=== PATIENT | female | born 1995 | race African-American/Black ===

== ENCOUNTER 2018-02-18 00:16 | Emergency (ER) | payer OTHER ==
[2018-02-18 00:22] VITALS: RESP 18; TEMP 99
[2018-02-18 00:36] LABS: Appearance,Urine Clear (Clear); Bilirubin,Urine Negative (Negative); Blood,Urine Negative (Negative); Color,Urine Yellow; Glucose,Urine (UA) Negative (Negative); Ketones,Urine Negative (Negative); Leukocyte Esterase,Urine Negative (Negative); Nitrite,Urine Negative (Negative); PH, Urine 5.5 (5.0-8.0); Protein,Urine Negative (Negative); Specific Gravity,Urine 1.023 (1.001-1.035); Urobilinogen,Urine <2.0 mg/dL (<2.0)
[2018-02-18] MEDS ORDERED: ONDANSETRON 4 MG/2 ML VIAL IVP STA (00:47)
[2018-02-18] MEDS ORDERED: SODIUM CHLORIDE 0.9% 500 ML IV STA (00:47)
--- NOTE | 2018-02-18 00:52 | ED ---
Abdominal Pain HPI - General Chief Complaint: Abdominal Pain Stated Complaint: Not feeling well Time Seen by Provider: 02/18/18 00:32 Source: patient Mode of arrival: ambulatory Limitations: no limitations - History of Present Illness Initial Comments: This patient is a 22-year-old woman who presents to be evaluated for generalized abdominal discomfort and nausea. The patient states that her symptoms started between a day in 2 days ago. She states she is feeling the symptoms throughout the abdomen, etc. generalized sensation. She states it feels upset. She states that she tried taking a laxative, but it didn't really change her she is feeling though she did not really have much of a bowel movement. She also reports having some nausea associated. Patient was also concerned about possibility of being . She states that she had sexual activity with someone on Thursday. Her last menstrual period was on February 07. The patient reports that prior to Thursday she had not been sexually active. Patient denies vaginal discharge. MD Complaint: abdominal pain Onset/Timin -: days(s) Location: diffuse Radiation: none Migration to: no migration Severity: mild Quality: cramping Consistency: constant Improves With: nothing Worsens With: nothing Associated Symptoms: nausea, constipation Treatments Prior to Arrival: other (Laxative) - Related Data Allergies Allergy/AdvReac Type Severity Reaction Status Date / Time No Known Allergies Allergy Verified 02/18/18 00:22 Review of Systems ROS Statement: Those systems with pertinent positive or pertinent negative responses have been documented in the HPI. ROS Other: All systems not noted in ROS Statement are negative. Constitutional: Denies: fever, chills Respiratory: Denies: cough, dyspnea Cardiovascular: Denies: chest pain, palpitations, edema Gastrointestinal: Reports: abdominal pain, nausea, vomiting, constipation. Denies: diarrhea, melena, hematochezia Genitourinary: Denies: dysuria, hematuria, discharge, abnormal menses Musculoskeletal: Denies: back pain Skin: Denies: rash Neurological: Denies: headache, weakness, numbness Past Medical History Past Medical History: No Reported History History of Any Multi-Drug Resistant Organisms: None Reported Past Surgical History: Orthopedic Surgery Past Psychological History: No Psychological Hx Reported Smoking Status: Never smoker Past Alcohol Use History: Occasional Past Drug Use History: None Reported General Exam Limitations: no limitations General appearance: alert, in no apparent distress Head exam: Present: normocephalic Eye exam: Present: normal appearance. Absent: scleral icterus, conjunctival injection ENT exam: Present: normal oropharynx Respiratory exam: Present: normal lung sounds bilaterally. Absent: respiratory distress, wheezes, rales, rhonchi, stridor Cardiovascular Exam: Present: regular rate, normal rhythm, normal heart sounds. Absent: systolic murmur, diastolic murmur, rubs, gallop GI/Abdominal exam: Present: soft, normal bowel sounds. Absent: distended, tenderness, guarding, rebound, rigid, mass, pulsatile mass, hernia Extremities exam: Present: normal inspection, normal capillary refill. Absent: pedal edema Back exam: Present: normal inspection. Absent: CVA tenderness (R), CVA tenderness (L) Neurological exam: Present: alert Skin exam: Present: warm, dry, intact, normal color. Absent: rash Course Vital Signs 02/18/18 00:19 Temperature 99.0 F Pulse Rate 75 Respiratory 18 Rate Blood Pressure 137/98 O2 Sat by Pulse 100 Oximetry Medical Decision Making - Lab Data Result diagrams: 02/18/18 00:59 02/18/18 00:59 Lab Results 02/18/18 02/18/18 02/18/18 Range/Units 00:22 00:22 00:59 WBC (4.0-11.0) k/uL RBC (3.80-5.40) m/uL Hgb (11.4-16.0) gm/dL Hct (34.0-46.0) % MCV (80.0-100.0) fL MCH (25.0-35.0) pg MCHC (31.0-37.0) g/dL RDW (11.5-15.5) % Plt Count (150-450) k/uL Neutrophils % % Lymphocytes % % Monocytes % % Eosinophils % % Basophils % % Neutrophils # (1.3-7.7) k/uL Lymphocytes # (1.0-4.8) k/uL Monocytes # (0-1.0) k/uL Eosinophils # (0-0.7) k/uL Basophils # (0-0.2) k/uL Sodium 142 (137-145) mmol/L Potassium 4.4 (3.5-5.1) mmol/L Chloride 111 H (98-107) mmol/L Carbon Dioxide 24 (22-30) mmol/L Anion Gap 7 mmol/L BUN 13 (7-17) mg/dL Creatinine 0.98 (0.52-1.04) mg/dL Est GFR (CKD-EPI)AfAm >90 (>60 ml/min/1.73 sqM) Est GFR (CKD-EPI)NonAf 83 (>60 ml/min/1.73 sqM) Glucose 99 (74-99) mg/dL Calcium 9.4 (8.4-10.2) mg/dL Total Bilirubin 0.3 (0.2-1.3) mg/dL AST 25 (14-36) U/L ALT 25 (9-52) U/L Alkaline Phosphatase 101 (38-126) U/L Total Protein 7.2 (6.3-8.2) g/dL Albumin 4.1 (3.5-5.0) g/dL Amylase 76 (30-110) U/L Lipase 272 (23-300) U/L Urine Color Yellow Urine Appearance Clear (Clear) Urine pH 5.5 (5.0-8.0) Ur Specific [place] 1.023 (1.001-1.035) Urine Protein Negative (Negative) Urine Glucose (UA) Negative (Negative) Urine Ketones Negative (Negative) Urine Blood Negative (Negative) Urine Nitrite Negative (Negative) Urine Bilirubin Negative (Negative) Urine Urobilinogen <2.0 (<2.0) mg/dL Ur Leukocyte Esterase Negative (Negative) Urine HCG, Qual Not Detected (Not Detectd) 02/18/18 Range/Units 00:59 WBC 6.1 (4.0-11.0) k/uL RBC 4.68 (3.80-5.40) m/uL Hgb 13.4 (11.4-16.0) gm/dL Hct 43.0 (34.0-46.0) % MCV 91.9 (80.0-100.0) fL MCH 28.7 (25.0-35.0) pg MCHC 31.2 (31.0-37.0) g/dL RDW 13.2 (11.5-15.5) % Plt Count 226 (150-450) k/uL Neutrophils % 60 % Lymphocytes % 29 % Monocytes % 6 % Eosinophils % 2 % Basophils % 1 % Neutrophils # 3.6 (1.3-7.7) k/uL Lymphocytes # 1.8 (1.0-4.8) k/uL Monocytes # 0.4 (0-1.0) k/uL Eosinophils # 0.1 (0-0.7) k/uL Basophils # 0.0 (0-0.2) k/uL Sodium (137-145) mmol/L Potassium (3.5-5.1) mmol/L Chloride (98-107) mmol/L Carbon Dioxide (22-30) mmol/L Anion Gap mmol/L BUN (7-17) mg/dL Creatinine (0.52-1.04) mg/dL Est GFR (CKD-EPI)AfAm (>60 ml/min/1.73 sqM) Est GFR (CKD-EPI)NonAf (>60 ml/min/1.73 sqM) Glucose (74-99) mg/dL Calcium (8.4-10.2) mg/dL Total Bilirubin (0.2-1.3) mg/dL AST (14-36) U/L ALT (9-52) U/L Alkaline Phosphatase (38-126) U/L Total Protein (6.3-8.2) g/dL Albumin (3.5-5.0) g/dL Amylase (30-110) U/L Lipase (23-300) U/L Urine Color Urine Appearance (Clear) Urine pH (5.0-8.0) Ur Specific [place] (1.001-1.035) Urine Protein (Negative) Urine Glucose (UA) (Negative) Urine Ketones (Negative) Urine Blood (Negative) Urine Nitrite (Negative) Urine Bilirubin (Negative) Urine Urobilinogen (<2.0) mg/dL Ur Leukocyte Esterase (Negative) Urine HCG, Qual (Not Detectd) Disposition Clinical Impression: Nausea Disposition: HOME SELF-CARE Condition: Good Instructions: Acute Nausea and Vomiting (ED) Is patient prescribed a controlled substance at d/c from ED?: No Referrals: Apoorva Rasmussen MD [STAFF PHYSICIAN] - 1-2 days
[2018-02-18 01:11] LABS: Basophils % (A) 1 %; Eosinophils # (A) 0.1 k/uL (0-0.7); Eosinophils % (A) 2 %; HGB 13.4 gm/dL (11.4-16.0); Lymphocytes # (A) 1.8 k/uL (1.0-4.8); Lymphocytes % (A) 29 %; MCH 28.7 pg (25.0-35.0); MCHC 31.2 g/dL (31.0-37.0); MCV 91.9 fL (80.0-100.0); Mean Platelet Volume 7.5; Monocytes # (A) 0.4 k/uL (0-1.0); Monocytes % (A) 6 %; Neutrophils # (A) 3.6 k/uL (1.3-7.7); Neutrophils % (A) 60 %; Platelet Count 226 k/uL (150-450); RBC 4.68 m/uL (3.80-5.40); RDW 13.2 % (11.5-15.5); WBC 6.1 k/uL (4.0-11.0)
[2018-02-18 01:20] LABS: ALT 25 U/L (9-52); AST 25 U/L (14-36); Albumin 4.1 g/dL (3.5-5.0); Alkaline Phosphatase 101 U/L (38-126); Amylase 76 U/L (30-110); Anion Gap 7 mmol/L; Blood Urea Nitrogen 13 mg/dL (7-17); Calcium 9.4 mg/dL (8.4-10.2); Carbon Dioxide 24 mmol/L (22-30); Chloride 111 mmol/L (98-107); Glucose 99 mg/dL (74-99); Lipase 272 U/L (23-300); Potassium 4.4 mmol/L (3.5-5.1); Sodium 142 mmol/L (137-145); Total Bilirubin 0.3 mg/dL (0.2-1.3); Total Protein 7.2 g/dL (6.3-8.2)
[2018-02-18 02:11] VITALS: BP 128/73; PULSE 69
== END 2018-02-18 02:11 | disposition home or self-care (01) ==
LOC: EC 00:16
DX: R11.0 Nausea (principal); R10.84 Generalized abdominal pain; Z32.02 Encounter for pregnancy test, result negative
CPT/HCPCS: 36415; 80053; 81003; 81025; 82150; 83690; 85025; 96374; 99284

== ENCOUNTER 2018-08-18 09:36 | Emergency (ER) | payer OTHER ==
[2018-08-18 09:43] VITALS: BP 129/80; PULSE 78; RESP 16; TEMP 98.1
[2018-08-18] MEDS ORDERED: DIPH,PERTUS(ACELL)TETVAC-LF 0.5 ML VIAL IM ONE (09:57)
[2018-08-18] MEDS ORDERED: LIDOCAINE 1% INJ 10MG/ML (20 ML MDV) SQ ONE (09:57)
--- NOTE | 2018-08-18 10:27 | XR ---
EXAMINATION TYPE: XR knee limited LT DATE OF EXAM: 08/18/2018 COMPARISON: NONE HISTORY: Pain, laceration TECHNIQUE: Two views are submitted. FINDINGS: Joint spaces are preserved. Osseous structures are intact. No acute fracture seen. No metallic for eign body identified. IMPRESSION: 1. No acute fracture or dislocation.
--- NOTE | 2018-08-18 10:58 | ED ---
General Adult HPI - General Chief complaint: Wound/Laceration Stated complaint: lt leg lac Time Seen by Provider: 08/18/18 09:46 Source: patient, RN notes reviewed Mode of arrival: ambulatory Limitations: no limitations - History of Present Illness Initial comments: 22-year-old female presents to the emergency department for a chief complaint Of laceration to the left lower leg. This occurred just prior to arrival. Patient states this happened because she broke a glass frame earlier. She states she had it sitting out because she did not know exactly what to do with it and when she walked by it cut her leg. Patient is not up-to-date on tetanus. She denies any other injuries. Review of systems. - Related Data Home Medications Medication Instructions Recorded Confirmed Atomoxetine HCl [Strattera] 25 mg PO BID 08/18/18 08/18/18 Ibuprofen [Advil] 400 mg PO Q6H 08/18/18 08/18/18 Allergies Allergy/AdvReac Type Severity Reaction Status Date / Time No Known Allergies Allergy Verified 08/18/18 09:56 Review of Systems ROS Statement: Those systems with pertinent positive or pertinent negative responses have been documented in the HPI. ROS Other: All systems not noted in ROS Statement are negative. Past Medical History Past Medical History: No Reported History History of Any Multi-Drug Resistant Organisms: None Reported Past Surgical History: Orthopedic Surgery Past Psychological History: No Psychological Hx Reported Smoking Status: Never smoker Past Alcohol Use History: Occasional Past Drug Use History: None Reported General Exam Limitations: no limitations General appearance: alert, in no apparent distress Head exam: Present: atraumatic, normocephalic, normal inspection Eye exam: Present: normal appearance, PERRL, EOMI. Absent: scleral icterus, conjunctival injection, periorbital swelling ENT exam: Present: normal exam, mucous membranes moist Neck exam: Present: normal inspection, full ROM. Absent: tenderness, meningismus, lymphadenopathy Respiratory exam: Present: normal lung sounds bilaterally. Absent: respiratory distress, wheezes, rales, rhonchi, stridor Cardiovascular Exam: Present: regular rate, normal rhythm, normal heart sounds. Absent: systolic murmur, diastolic murmur, rubs, gallop, clicks Extremities exam: Present: full ROM (Full range motion in the left lower extremity), normal capillary refill (Refill less than 2 seconds, DP pulse 2+), other (Laceration extending 3 cm in the lateral proximal left lower leg. Adipose tissue exposed.) Neurological exam: Present: alert, oriented X3, CN II-XII intact Psychiatric exam: Present: normal affect, normal mood Course Vital Signs 08/18/18 09:41 Temperature 98.1 F Pulse Rate 78 Respiratory 16 Rate Blood Pressure 129/80 O2 Sat by Pulse 100 Oximetry Procedures - Laceration Laceration #1 Consent Obtained: verbal consent Indication: laceration Site: lower extremity Size (cm): 3 Description: linear Depth: simple, single layer Anesthetic Used: lidocaine 1% Anesthesia Technique: local infiltration Amount (mls): 4 Pre-repair: wound explored, irrigated extensively Type of Sutures: other (ethilon) Size of Sutures: 5-0 Number of Sutures: 7 Technique: simple, interrupted Patient Tolerated Procedure: well, no complications Medical Decision Making - Medical Decision Making 22-year-old female presents to the emergency department for a chief laceration. This is on the proximal left lower extremity lateral aspect. The laceration is about 3 cm. This was cleaned thoroughly with pressure saline irrigation and iodine. This was sutured with simple interrupted sutures. X-ray negative for foreign bodies. Tetanus updated. Discussed return precautions for infection. Discussed returning in 10 days for suture removal. Patient will follow up with primary care in 1-2 days. Disposition Clinical Impression: Laceration Disposition: HOME SELF-CARE Condition: Good Instructions (If sedation given, give patient instructions): Care For Your Stitches (ED), Laceration (ED) Additional Instructions: Please take Motrin and Tylenol for pain. Keep the area clean. Return in 10 days to have sutures removed. Return if you have any worsening symptoms or signs of infection. Follow up with primary care in 1-2 days for wound recheck. Is patient prescribed a controlled substance at d/c from ED?: No Referrals: Nonstaff,Physician [Primary Care Provider] - 1-2 days Time of Disposition: 11:01
== END 2018-08-18 11:12 | disposition home or self-care (01) ==
LOC: EC 09:36
DX: S81.812A Laceration without foreign body, left lower leg, initial encounter (principal); Z79.1 Long term (current) use of non-steroidal anti-inflammatories (NSAID); Z79.899 Other long term (current) drug therapy; Z23 Encounter for immunization; W25.XXXA Contact with sharp glass, initial encounter; Y93.01 Activity, walking, marching and hiking
CPT/HCPCS: 12002; 90471; 90715; 99283